=== PATIENT | female | born 1970 | race Caucasian/White ===

== ENCOUNTER 2020-07-25 12:41 | Emergency (ER) | payer BC ==
[2020-07-25 13:10] LABS: #Basophils 0.1 thou/uL (0.0-0.2); #Eosinphils 0.1 thou/uL (0.0-0.7); #Lymphocytes 1.5 thou/uL (1.20-3.40); #Monocytes 0.5 thou/uL (0.11-0.59); %Basophils 1.3 % (0.0-1.0); %Eosinophils 2.3 % (0.0-10.0); %Lymphocytes 29.1 % (21.0-51.0); %Monocytes 10.3 % (0.0-10.0); Hemoglobin 7.9 g/dL (12.0-16.0); Mean Corpuscular HGB CONC 27.9 g/dL (32.0-36.0); Mean Corpuscular Hemoglobin 18.5 pg (27.0-31.0); Mean Corpuscular Volume 66.5 fL (78.0-98.0); Mean Platelet Volume 5.8 fL (7.4-10.4); Platelet Count 275 thou/uL (130-400); RBC Distribution Width 19.3 % (11.5-14.5); Red Blood Cell (RBC) Count 4.26 mill/uL (4.20-5.40); White Blood Cell (WBC) Count 5.3 thou/uL (4.8-10.8)
[2020-07-25 13:34] LABS: ALT (SGPT) 21 U/L (8-55); AST (SGOT) 21 U/L (5-34); Alkaline Phosphatase 62 U/L (40-110); Anion Gap 9 mmol/L (10-20); BUN (Urea Nitrogen) 13 mg/dL (7.0-18.7); Bilirubin, Total 0.3 mg/dL (0.2-1.2); Calc. Creatinine Clearance 0 mL/min (70-130); Calcium 8.8 mg/dL (7.8-10.44); Carbon Dioxide 27 mmol/L (22-29); Chloride 105 mmol/L (98-107); Estimated GFR-MDRD 75; Globulin 2.9 g/dL (2.4-3.5); Glucose 97 mg/dL (70-105); Protein, Total 6.9 g/dL (6.0-8.3); Sodium 137 mmol/L (136-145)
[2020-07-25 13:38] LABS: Anisocytosis SLIGHT = 6-15 cells (100X) (0-5/hpf); Hypochromia SLIGHT = 6-15 cells (100X) (0-5/hpf); MDiff Complete? YES; Microcytosis SLIGHT = 6-15 cells (100X) (0-5/hpf); Ovalocytes SLIGHT = 2-5 cells (100X) (0-1/hpf); Platelet Morphology Comment Appears Adequate; Polychromasia SLIGHT = 2-3 cells (100X) (0-2/hpf)
[2020-07-25] MEDS ORDERED: Iopamidol-370 76% 500 ML 1 ML ONE (14:17)
--- NOTE | 2020-07-25 15:59 | CT ---
CT ABDOMEN WITH CONTRAST CT PELVIS WITH CONTRAST: DATE: 07/25/2020 HISTORY: 50-year-old female with upper abdominal pain, weight loss, anemia COMPARISON: None TECHNIQUE: IV injection of iodinated contrast media: administered. Oral contrast media:Not administered FINDINGS: 4 x 4.5 x 4.5 cm thin-walled low density mass in right sided pelvic cavity with density of 20 Hounsfi eld units. No surrounding fat stranding. Absent uterus. No intrapelvic, retroperitoneal, mesenteric, or noemi hepatis, significantly enlarged lymph nodes. Approximately 50% of the stomach herniates into the thoracic cavity. No pleural effusion or consolidation at lung bases. Left L5 pars interarticularis defect. Vertebral body heights are maintained throughout the thoracic s pine. No destructive osseous lesion identified. Multiple masses of varying sizes, some large, with heterogeneous nodular peripheral enhancement, in the left and right lobes of liver, at least most of which are hemangiomas. The largest is centered in hepatic segment 4A, and measures approximately 5.5 x 6.5 cm. 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 No biliary ductal dilation. Approximately 1.3 cm low-attenuation lesion at medial parenchyma of left renal mid-lower pole, too sm all to characterize, possibly a cyst. Similar such lesion at left renal upper pole. No pyelonephritis or hydronephrosis. Normal pancreas, right kidney, abdominal aorta, spleen, appendix, and urinary bladder. No colonic diverticulitis, small bowel dilation, ascites, or pneumoperitoneum. IMPRESSION: 1) 4.5 cm cystic lesion in the right hemipelvis, probably an ovarian cyst, probably with hemorrhagic products. 2) numerous hepatic hemangiomas, some of them large. 3) large hiatal hernia. 4) unilateral left L5 spondylolysis.
== END 2020-07-25 17:45 | disposition home or self-care (01) ==
LOC: ERS 12:41
DX: D64.9 Anemia, unspecified (principal); D18.00 Hemangioma unspecified site; R63.4 Abnormal weight loss; F41.9 Anxiety disorder, unspecified; F32.9 Major depressive disorder, single episode, unspecified; F17.210 Nicotine dependence, cigarettes, uncomplicated; Z79.899 Other long term (current) drug therapy
CPT/HCPCS: 36415; 74177; 80053; 83690; 85025; 86850; 86900; 86901; Q9967

== ENCOUNTER 2020-09-21 06:43 | Day surgery (SDC) | payer BC ==
[2020-09-20 14:46] VITALS: BMI 30.7
[2020-09-21] MEDS ORDERED: Levofloxacin 500 mg/D5W 100 ml Premix Bag ONE (07:52)
[2020-09-21] MEDS ORDERED: Midazolam HCl 2 mg/2 ml Vial ONE ×2 (07:59→09:42)
[2020-09-21] MEDS ORDERED: B & O ONE (09:41)
[2020-09-21] MEDS ORDERED: Fentanyl 100 MCG/2 ML VIAL ONE ×3 (09:42→11:51)
[2020-09-21] MEDS ORDERED: Lidocaine 1% PF 5 ML VIAL ONE (10:46)
[2020-09-21] MEDS ORDERED: Dexamethasone 20 MG/5 ML VIAL ONE (10:46)
[2020-09-21] MEDS ORDERED: PROPOFOL 200 MG/20 ML VIAL ONE (10:46)
[2020-09-21] MEDS ORDERED: Ondansetron PF 4 MG/2 ML Vial ONE (11:27)
--- NOTE | 2020-09-21 11:57 | RAD ---
RETROGRADE IVP: Date; 09/21/2020 A single fluoroscopic image is presented from OR during retrograde procedure. INDICATION: Left ureteroscopy. FINDINGS/IMPRESSION: The single fluoroscopic image projected demonstrates a left ureteral stent. POS: OFF
--- NOTE | 2020-09-21 12:14 | OP ---
DATE OF PROCEDURE: 09/21/2020 SERVICE: Urology. PREOPERATIVE DIAGNOSIS: Left ureteral stone. POSTOPERATIVE DIAGNOSIS: Left ureteral stone. PROCEDURE PERFORMED: 1. Left ureteroscopy. 2. Laser lithotripsy. 3. Basket extraction of stones. 4. Placement of a 6 x 24 double-J stent. INDICATIONS FOR PROCEDURE: Ms. Artis is a 50-year-old white female who initially presented to sd with left flank pain. A CT done at [facility] demonstrated a 3-mm distal left ureteral stone, which had not passed over the course of 3 weeks. She has elected to go ahead and have the stone removed. Risks and benefits have been discussed and she has agreed to proceed forward. DESCRIPTION OF PROCEDURE: After identification of armband and verification of consent, the patient was brought back to the operating room where she underwent general anesthesia with an LMA. She was placed in dorsal lithotomy position and prepped and draped in the usual sterile fashion. After appropriate time-out, a lubricated 22-Brazilian rigid cystoscope was introduced per urethra into the bladder. Attention was turned to the left ureteral orifice, which was cannulated with a 0.035 Sensor wire up to the level of renal pelvis. The ureteral orifice was very narrow, so we used a dual-lumen catheter to gently dilate the distal ureteral orifice to allow for entry of the rigid ureteroscope. The dual-lumen was then removed and discarded. The Sensor wire affixed to the drapes as a safety wire. A semi-rigid ureteroscope was then brought in alongside the Sensor wire and with the aid of a guidewire, used to cannulate into the distal ureter, approximately 3 to 4 cm proximal to the ureteral orifice. The stone was encountered as a longitudinal linear stone. A 200 micron ball-tipped laser fiber was used to break the stone into 2 pieces and then the fragments were extracted using a 1.9-Brazilian Fablistic basket. The fragment was so small, that it was difficult to place into the cup, it was probably almost 1 mm in size if that. After attempts to get the stone off the gloved finger into the cup, it flipped off and disappeared. We could not find it, so there was no stone left for analysis. Inspection in the bladder did not reveal the other fragment was there and it likely had come out with the irrigation. As such, the stone has gone out of the ureter. There was a little bit of dilation done of the distal ureteral orifice solely on the fact that it was difficult to gain entry. As such, I did feel it would be pink to leave the stent in. A 6 x 24 double-J stent was advanced fluoroscopically over the Sensor wire into the renal pelvis. The wire was removed, leaving a good curl in the kidney and a good curl in the bladder. The bladder was left emptied from previous cystoscopy removal. A B and O suppository was placed in the patient's rectum. The patient was taken out of positioning, awakened, taken to PACU for recovery in stable condition. COMPLICATIONS: None. ESTIMATED BLOOD LOSS: Minimal. RETAINED TUBES AND DRAINS: A 6 x 24 double-J stent on the left. SPECIMENS: A stone, which unfortunately was lost due to the extremely small size. DISPOSITION: The patient will be discharged home and follow up with me in approximately 1 week. She will be instructed to remove her stent on Thursday of next week by gently pulling the string. Job ID: [id number]
[2020-09-21] MEDS ORDERED: Morphine 2 MG/ML VIAL ONE (13:04)
[2020-09-21] MEDS ORDERED: HYDROcodone/Acetaminophen 5/325 mg Tablet ONE (13:04)
== END 2020-09-21 14:00 | disposition home or self-care (01) ==
LOC: SDC 06:43
PROVIDERS: ATTEND Urology
PROC: 0TC78ZZ Extirpation of Matter from Left Ureter, Via Natural or Artificial Opening Endoscopic (ICD-10-PCS; principal; 2020-09-21)
PROC: 0T778DZ Dilation of Left Ureter with Intraluminal Device, Via Natural or Artificial Opening Endoscopic (ICD-10-PCS; principal; 2020-09-21)
DX: N13.2 Hydronephrosis with renal and ureteral calculous obstruction (principal); N28.1 Cyst of kidney, acquired; D50.9 Iron deficiency anemia, unspecified; F41.9 Anxiety disorder, unspecified; F32.9 Major depressive disorder, single episode, unspecified; Z79.899 Other long term (current) drug therapy; Z87.891 Personal history of nicotine dependence; Z88.0 Allergy status to penicillin; Z91.040 Latex allergy status; Z91.048 Other nonmedicinal substance allergy status
CPT/HCPCS: 74420; J1100; J1956; J2250; J2270; J2405; J2704; J3010